=== PATIENT | female | born 1965 | race Caucasian/White ===

== ENCOUNTER 2020-08-27 13:49 | Emergency (ER) | payer OTHER ==
[2020-08-27] MEDS ORDERED: ATARAX25 MG PO (15:05)
[2020-08-27] MEDS ORDERED: MEDROL 4MG DOSEP4 MG PO (15:05)
== END 2020-08-27 15:44 | disposition home or self-care (01) ==
LOC: FER 13:49
DX: L50.0 Allergic urticaria (principal); I10 Essential (primary) hypertension
CPT/HCPCS: 99282; J1100